=== PATIENT | male | born 1970 | race Caucasian/White ===

== ENCOUNTER 2018-06-25 10:31 | Emergency (ER) | payer BC, OTHER ==
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
--- NOTE | 2018-06-25 12:25 | CR ---
INDICATION: Pain COMPARISON: none TECHNIQUE: Three-view right wrist FINDINGS: The bones are anatomically aligned. There is no evidence of fracture, erosion or intrinsic bone lesion. The soft tissues appear normal. IMPRESSION: Negative right wrist. Dictated by Narciso Knight MD @ Jun 25 2018 12:23PM Signed by Dr. Narciso Knigth @ Jun 25 2018 12:24PM
== END 2018-06-25 12:45 | disposition home or self-care (01) ==
LOC: MW.ED 10:31
DX: S69.91XA Unspecified injury of right wrist, hand and finger(s), initial encounter (principal); F17.210 Nicotine dependence, cigarettes, uncomplicated; X58.XXXA Exposure to other specified factors, initial encounter
CPT/HCPCS: 36415; 73110-26-RT; 73110-RT; 81003; 85025; 99284-25